=== PATIENT | female | born 1995 | race Two or more races ===

== ENCOUNTER → 2017-01-02 | Outpatient (REF) | payer OTHER | LOC: M LAB REF 09:17 | PROVIDERS: ATTEND Physician Assistant Medical | DX: J02.9 Acute pharyngitis, unspecified (principal) ==

== ENCOUNTER → 2017-07-11 | Outpatient (REF) | payer OTHER | LOC: M SFHCLERA 19:24 | PROVIDERS: ATTEND Nurse Practitioner Family | DX: J02.9 Acute pharyngitis, unspecified (principal) ==

== ENCOUNTER → 2017-10-04 | Outpatient (REF) | payer BC | LOC: M LAB REF 13:18 | PROVIDERS: ATTEND Physician Assistant | DX: N39.0 Urinary tract infection, site not specified (principal) ==

== ENCOUNTER → 2018-10-15 | Outpatient (CLI) | payer BC ==
[2018-10-15 12:43] LABS: BASO # 0.1 10^3/uL (0.0-0.2); BASO % 0.6 % (0.0-1.0); EOS # 0.2 10^3/uL (0.0-0.50); EOS % 1.9 % (0.0-3.0); HEMATOCRIT 37.6 % (36.0-47.0); HEMOGLOBIN 12.9 g/dl (12.0-15.5); IMMATURE GRANULOCYTE % 0.1 % (0-3.0); LYMPH # 2.4 10^3/uL (1.5-6.5); LYMPH % 29.9 % (24.0-44.0); MEAN CORPUSCULAR HEMOGLOBIN 29.5 pg (27.0-33.0); MEAN CORPUSCULAR HGB CONC 34.3 g/dl (32.0-36.5); MONO # 0.6 10^3/uL (0.0-0.8); NEUTROPHILS # 4.8 10^3/uL (1.8-7.7); NEUTROPHILS % 59.5 % (36.0-66.0); PLATELET COUNT, AUTOMATED 283 10^3/uL (150-450); RED BLOOD COUNT 4.37 10^6/uL (4.00-5.40); RED CELL DISTRIBUTION WIDTH 12.5 % (11.5-14.5)
[2018-10-15 13:12] LABS: ANION GAP 7 MEQ/L (8-16); BLOOD UREA NITROGEN 11 MG/DL (7-18); CALCIUM LEVEL 8.6 MG/DL (8.5-10.1); CARBON DIOXIDE LEVEL 27 MEQ/L (21-32); CHLORIDE LEVEL 106 MEQ/L (98-107); CREATININE FOR GFR 0.72 MG/DL (0.55-1.30); GLOMERULAR FILTRATION RATE > 60.0 (>60); GLUCOSE, FASTING 69 MG/DL (70-100); POTASSIUM SERUM 4.7 MEQ/L (3.5-5.1); SODIUM LEVEL 140 MEQ/L (136-145)
[2018-10-15 13:13] LABS: TOTAL 25(OH) VITAMIN D 22.3 NG/ML (30.0-100.0)
== END ==
LOC: M WUC 10:28
DX: R53.83 Other fatigue (principal)
CPT/HCPCS: 84443

== ENCOUNTER → 2020-11-08 | Outpatient (REF) | payer BC, SELFPAY | LOC: M LAB REF 12:32 | PROVIDERS: ATTEND Physician Assistant Medical | DX: Z20.828 Contact with and (suspected) exposure to other viral communicable diseases (principal) ==

== ENCOUNTER → 2024-04-25 | Outpatient (CLI) | payer OTHER ==
[2024-04-25 14:31] LABS: FOLATE 16.5 NG/ML (>5.4); TOTAL 25(OH) VITAMIN D 30.5 NG/ML (20.0-100.0); VITAMIN B12 LEVEL 602 PG/ML (211-911)
[2024-04-25 14:32] LABS: FERRITIN 40.2 NG/ML (7.3-270.7)
[2024-04-25 14:37] LABS: IRON (FE) 69 UG/DL (50-170)
[2024-04-25 14:39] LABS: ALBUMIN 3.7 G/DL (3.2-5.2); ALKALINE PHOSPHATASE 70 U/L (46-116); ALT/SGPT 15 U/L (7.0-40); AST/SGOT 9 U/L (<34); BASO # 0.1 10^3/uL (0.0-0.2); BASO % 0.6 % (0.0-1.0); BILIRUBIN,TOTAL 0.5 MG/DL (0.3-1.2); BLOOD UREA NITROGEN 12 MG/DL (9-23); CALCIUM LEVEL 9.4 MG/DL (8.5-10.1); CARBON DIOXIDE LEVEL 26 MMOL/L (20-31); CHLORIDE LEVEL 106 MMOL/L (98-107); CREATININE FOR GFR 0.67 MG/DL (0.55-1.30); EOS # 0.3 10^3/uL (0.0-0.5); EOS % 3.1 % (0.0-3.0); FREE T4 1.05 NG/DL (0.89-1.76); GLOMERULAR FILTRATION RATE > 60.0 (>60); GLUCOSE, FASTING 84 MG/DL (60-100); HEMATOCRIT 39.7 % (36.0-47.0); HEMOGLOBIN 13.8 g/dl (12.0-15.5); LYMPH # 3.3 10^3/uL (1.5-5.0); LYMPH % 33.6 % (24.0-44.0); MAGNESIUM LEVEL 1.9 MG/DL (1.8-2.4); MEAN CORPUSCULAR HEMOGLOBIN 30.6 pg (27.0-33.0); MEAN CORPUSCULAR HGB CONC 34.8 g/dl (32.0-36.5); MONO # 0.7 10^3/uL (0.0-0.8); MONO % 6.7 % (2.0-8.0); NEUTROPHILS # 5.5 10^3/uL (1.5-8.5); NEUTROPHILS % 55.7 % (36.0-66.0); PERCENT SATURATION 23.1 % (13.2-45.0); PLATELET COUNT, AUTOMATED 299 10^3/uL (150-450); POTASSIUM SERUM 4.2 MMOL/L (3.5-5.1); RED BLOOD COUNT 4.51 10^6/uL (4.00-5.40); SODIUM LEVEL 139 MMOL/L (136-145); TOTAL IRON BINDING CAPACITY 299 UG/DL (250-425); TOTAL PROTEIN 7.4 G/DL (5.7-8.2); WHITE BLOOD COUNT 9.9 10^3/uL (4.0-10.0)
[2024-04-25 15:01] LABS: HEMOGLOBIN A1c 4.6 % (4.0-6.0)
== END ==
LOC: M WUC 08:52
PROVIDERS: ATTEND Registered Nurse
DX: R53.83 Other fatigue (principal)

== ENCOUNTER → 2025-01-09 | Outpatient (CLI) | payer OTHER ==
[2025-01-09 14:29] LABS: HEMATOCRIT 38.1 % (36.0-47.0); HEMOGLOBIN 13.5 g/dl (12.0-15.5); MEAN CORPUSCULAR HEMOGLOBIN 30.7 pg (27.0-33.0); MEAN CORPUSCULAR HGB CONC 35.4 g/dl (32.0-36.5); MEAN CORPUSCULAR VOLUME 86.6 fl (80.0-96.0); PLATELET COUNT, AUTOMATED 272 10^3/uL (150-450)
[2025-01-09 15:01] LABS: HIV 1&2 SCREEN NEGATIVE (NEGATIVE)
[2025-01-09 15:09] LABS: HEPATITIS C VIRUS ABY INDEX 0.12 INDEX (<0.8)
[2025-01-09 16:16] LABS: Trichomonas vaginalis (AMP) NOT DETECTED (NEGATIVE)
[2025-01-09 16:40] LABS: GC DNA AMPLIFICATION NEGATIVE (NEGATIVE)
== END ==
LOC: M PLALAB 09:48
PROVIDERS: ATTEND Nurse Practitioner Family
DX: Z34.81 Encounter for supervision of other normal pregnancy, first trimester (principal)

== ENCOUNTER → 2025-01-22 | Outpatient (CLI) | payer OTHER | LOC: M PLALAB 09:54 | PROVIDERS: ATTEND Nurse Practitioner Family | DX: Z34.81 Encounter for supervision of other normal pregnancy, first trimester (principal) ==

== ENCOUNTER → 2025-03-18 | Outpatient (CLI) | payer BC | LOC: M WHC 09:29 | PROVIDERS: ATTEND Nurse Practitioner Family | DX: Z34.82 Encounter for supervision of other normal pregnancy, second trimester (principal); Z3A.19 19 weeks gestation of pregnancy ==

== ENCOUNTER → 2025-04-09 | Outpatient (REF) | payer BC | LOC: M PLALAB 09:34 | PROVIDERS: ATTEND Advanced Practice Midwife | DX: Z53.9 Procedure and treatment not carried out, unspecified reason (principal) ==

== ENCOUNTER → 2025-07-17 | Outpatient (REF) | payer BC | LOC: M PLALAB 15:15 | PROVIDERS: ATTEND Specialist | DX: Z34.93 Encounter for supervision of normal pregnancy, unspecified, third trimester (principal); Z3A.36 36 weeks gestation of pregnancy ==

== ENCOUNTER 2025-08-10 17:12 | Inpatient (IN) | payer BC ==
[~2025-08-10] VITALS: Ht 165.1 cm; Wt 93.0 kg
[2025-08-10] MEDS ORDERED: CLAR1TAB13 PO (17:34)
[2025-08-10] MEDS ORDERED: PRENTAB9 PO (17:34)
[2025-08-10] MEDS ORDERED: COLA100C5 PO (17:34)
[2025-08-10] MEDS ORDERED: HOME MED LIST COMPLETE! XX SCH (17:35)
[2025-08-10 17:37] VITALS: BP 119/72
[2025-08-10] MEDS ORDERED: OXYTOCIN INJ 10UNITS/ML 1ML VIAL IM PRN (18:30)
[2025-08-10] MEDS ORDERED: TRANEXAMIC ACID INJection 1,000 MG in NS 100 ML IV PRN (18:30)
[2025-08-10] MEDS ORDERED: miSOPROStol 50 MCG 1/2 TABLET PV ONE (18:30)
[2025-08-10] MEDS ORDERED: METHYLERGONOVINE MALEATE 0.2 MG/ML 1 ML VIAL IM PRN (18:30)
[2025-08-10] MEDS ORDERED: CARBOPROST TROMETHAMINE 250 MCG/ML AMP IM PRN (18:30)
[2025-08-10] MEDS: miSOPROStol 25 MCG 1/4 TABLET PV ONE (18:44)
[2025-08-10 18:50] LABS: PLATELET COUNT, AUTOMATED 215 10^3/uL (150-450)
[2025-08-10 19:49] LABS: HIV 1&2 SCREEN NEGATIVE (NEGATIVE)
[2025-08-10 19:58] LABS: HEPATITIS C VIRUS ABY INDEX 0.02 INDEX (<0.8)
[2025-08-10 20:05] VITALS: BP 131/78
[2025-08-10 21:31] VITALS: BP 118/70
[2025-08-10] MEDS: LR 1,000 ML IV SCH (23:27)
[2025-08-10] MEDS: OXYTOCIN DRIP 30 UNITS in IV 1 EA IV SCH (23:30)
[2025-08-10 23:33] VITALS: BP 130/78
[2025-08-11] VITALS (50 sets, daily range): BP systolic 101–152; BP diastolic 55–92; O2SAT 95
[2025-08-11] MEDS ORDERED: FENTANYL 2 MCG/ML ROPIVACAINE 0.2% IN 0.9% NACL 100 ML IVBAG As Ordered ONE (08:28)
[2025-08-11] MEDS ORDERED: NALOXONE INJ 0.4 MG/1 ML VIAL IV PRN (08:35)
[2025-08-11] MEDS ORDERED: ONDANSETRON 4MG 2ML VIAL IV PRN (08:35)
[2025-08-11] MEDS ORDERED: diphenhydrAMINE 50 MG/ML VIAL IV PRN (08:35)
[2025-08-11] MEDS ORDERED: LR 500 ML IV PRN (08:35)
[2025-08-11] MEDS ORDERED: EPIDURAL/PCA KEYS XX PRN (08:35)
[2025-08-11] MEDS: LR 1,000 ML IV ONE (09:14)
[2025-08-11] MEDS: FENTANYL/ROPIVACAINE/NACL BAG 100 ML EPIDURAL SCH (09:16)
[2025-08-11] MEDS: LIDOCAINE 1% MDV 20 ML VIAL INFIL PRN (15:55)
[2025-08-11] MEDS: OXYTOCIN DRIP 30 UNITS in IV 1 EA IV PRN (15:56)
[2025-08-11] MEDS ORDERED: RHOGAM 300MCG (1500IU) INJ IM SCH (16:35)
[2025-08-11] MEDS ORDERED: ACETAMINOPHEN 325 MG TAB PO PRN (16:35)
[2025-08-11] MEDS ORDERED: METHYLERGONOVINE MALEATE 0.2 MG TAB PO PRN (16:35)
[2025-08-11] MEDS ORDERED: IBUPROFEN 600 MG TAB PO PRN (16:35)
[2025-08-11] MEDS ORDERED: DIBUCAINE 1% OINTMENT 30 GM TOP PRN (16:35)
[2025-08-11] MEDS: IBUPROFEN 800 MG TAB PO PRN (23:12)
[2025-08-12 06:00] VITALS: BP 116/57; O2SAT 98
[2025-08-12] MEDS: PRENATAL VITAMINS CHEWABLE TABLET PO SCH (08:07)
[2025-08-12] MEDS: ACETAMINOPHEN 500 MG TAB PO PRN (12:53)
[2025-08-12 18:00] VITALS: BP 117/62; O2SAT 96
[2025-08-13 05:48] VITALS: BP 119/73; O2SAT 97
[2025-08-13] MEDS: DOCUSATE SODIUM 100 MG CAPSULE PO PRN (07:55)
[2025-08-13] MEDS ORDERED: MEASLES,MUMPS,RUBELLA VACCINE INJ (MMR-II) SC.IMMUN ONE (09:00)
[2025-08-13] MEDS ORDERED: ACET-683 PO (10:44)
[2025-08-13] MEDS ORDERED: IBUP80TA PO (10:44)
== END 2025-08-13 12:30 | disposition home or self-care (01) | DRG 560 ==
LOC: M LDI 17:12 → M OBS 08-11 17:52
PROVIDERS: ADMIT Advanced Practice Midwife; ATTEND Advanced Practice Midwife
PROC: 3E033VJ Introduction of Other Hormone into Peripheral Vein, Percutaneous Approach (ICD-10-PCS; 2025-08-10)
PROC: 3E0DXGC Introduction of Other Therapeutic Substance into Mouth and Pharynx, External Approach (ICD-10-PCS; 2025-08-10)
PROC: 10E0XZZ Delivery of Products of Conception, External Approach (ICD-10-PCS; principal; 2025-08-11)
PROC: 10907ZC Drainage of Amniotic Fluid, Therapeutic from Products of Conception, Via Natural or Artificial Opening (ICD-10-PCS; 2025-08-11)
DX: O48.0 Post-term pregnancy (principal); Z37.0 Single live birth; Z3A.40 40 weeks gestation of pregnancy

== ENCOUNTER 2025-09-10 20:23 | Emergency (ER) | payer BC ==
[~2025-09-10] VITALS: Ht 165.1 cm; Wt 83.6 kg
[~2025-09-10 20:23] MED LIST: ACET-683 PO; CLAR1TAB13 PO; COLA100C5 PO; IBUP80TA PO; PRENTAB9 PO
[2025-09-10 20:56] LABS: BASO # 0.1 10^3/uL (0.0-0.2); BASO % 0.5 % (0.0-1.0); EOS # 0.3 10^3/uL (0.0-0.5); EOS % 3.4 % (0.0-3.0); LYMPH # 3.5 10^3/uL (1.5-5.0); LYMPH % 35.5 % (24.0-44.0); MONO # 0.6 10^3/uL (0.0-0.8); MONO % 5.6 % (2.0-8.0); NEUTROPHILS # 5.4 10^3/uL (1.5-8.5); NEUTROPHILS % 54.7 % (36.0-66.0); PLATELET COUNT, AUTOMATED 262 10^3/uL (150-450)
[2025-09-10 21:19] LABS: CK-MB VALUE MASS < 1.0 NG/ML (<3.6)
[2025-09-10 21:20] LABS: CALCIUM LEVEL 9.5 MG/DL (8.5-10.1); CARBON DIOXIDE LEVEL 28 MMOL/L (20-31); CHLORIDE LEVEL 102 MMOL/L (98-107); CPK CREATINE PHOSPHOKINASE 84 U/L (34-145); CREATININE FOR GFR 0.91 MG/DL (0.55-1.30); GLOMERULAR FILTRATION RATE 86.0 (>60); POTASSIUM SERUM 3.6 MMOL/L (3.5-5.1); SODIUM LEVEL 142 MMOL/L (136-145)
[2025-09-10] MEDS: GI COCKTAIL 50 ML BTL(HYOSCYAMINE/MAALOX/LIDOCAINE VISCOUS)(1:3:1) PO ONE (23:56)
[2025-09-11 00:16] LABS: CK-MB VALUE MASS < 1.0 NG/ML (<3.6)
[2025-09-11 00:18] LABS: CPK CREATINE PHOSPHOKINASE 73 U/L (34-145)
[2025-09-11 00:57] VITALS: BP 114/70; TEMP 98.1; O2SAT 98
== END 2025-09-11 01:03 | disposition home or self-care (01) ==
LOC: M ED 20:23
DX: K21.9 Gastro-esophageal reflux disease without esophagitis (principal); Z79.1 Long term (current) use of non-steroidal anti-inflammatories (NSAID); Z79.899 Other long term (current) drug therapy; Z91.048 Other nonmedicinal substance allergy status

== ENCOUNTER → 2025-10-05 | Outpatient (CLI) | payer BC | LOC: M WHC 08:00 | PROVIDERS: ATTEND Registered Nurse | DX: R10.11 Right upper quadrant pain (principal); K80.20 Calculus of gallbladder without cholecystitis without obstruction ==

== ENCOUNTER → 2025-11-18 | Day surgery (SDC) | payer BC ==
[~2025-11-18] VITALS: Ht 165.1 cm; Wt 84.3 kg
[~2025-11-18] MED LIST changes: +ACETAMINOPHEN 1000MG/100ML IV BAG As Ordered ONE; +HEPARIN SOD 5000 UNITS/ML 1 ML VIAL/SYRINGE SQ ONE; +INDOCYANINE GREEN 25 MG VIAL As Ordered ONE; +INDOCYANINE GREEN 25 MG VIAL IV ONE; +KETOROLAC 30 MG/ML 1 ML VIAL As Ordered ONE; +LIDOCAINE 2% 100 MG/5 ML SDV (FOR ANES.) As Ordered ONE; +MIDAZOLAM INJ 2 MG/2 ML VIAL As Ordered ONE; +OMEP-173 PO; +ONDANSETRON 4MG/2ML VIAL As Ordered ONE; +ROCURONIUM BROMIDE 50MG/5ML VIAL As Ordered ONE; +SUGAMMADEX SODIUM 200 MG/2 ML VIAL As Ordered ONE; +ceFAZolin SOD 2 GM IV ONCE IV ONE; +dexAMETHasone 4 MG/ML 1 ML VIAL As Ordered ONE
[2025-11-18 12:54] VITALS: BP 131/71; TEMP 97.1; O2SAT 98
[2025-11-18] MEDS: LR 1,000 ML IV SCH (13:05)
== END | disposition home or self-care (01) ==
LOC: M SDC 12:24
PROVIDERS: ATTEND Surgery
DX: K80.20 Calculus of gallbladder without cholecystitis without obstruction (principal); Z53.9 Procedure and treatment not carried out, unspecified reason